=== PATIENT | female | born 1945 | race Hispanic/Latino ===

== ENCOUNTER 2022-10-10 20:45 | Emergency (ER) | payer MEDICARE ==
[2022-10-10] MEDS ORDERED: Lidocaine 1% PF 5 ML VIAL ONE (21:01)
[2022-10-10] MEDS ORDERED: Boostrix 0.5 ML (Tdap) VIAL (>/=7 yrs of age) ONE (21:54)
[2022-10-10] MEDS ORDERED: Bacitracin 1 PK ONE (21:57)
== END 2022-10-10 22:19 | disposition home or self-care (01) ==
LOC: BURERS 20:45
DX: S61.217A Laceration without foreign body of left little finger without damage to nail, initial encounter (principal); W26.0XXA Contact with knife, initial encounter; Z23 Encounter for immunization; Z79.01 Long term (current) use of anticoagulants
CPT/HCPCS: 12001; 90471; 90715